=== PATIENT | female | born 1990 ===

== ENCOUNTER 2019-01-10 01:31 | Outpatient (CLI) | payer BC | END 2019-01-10 23:59 | disposition home or self-care (01) | LOC: DIABETIC 01:31 | PROVIDERS: ATTEND Specialist | DX: E10.65 Type 1 diabetes mellitus with hyperglycemia (principal); Z79.4 Long term (current) use of insulin | CPT/HCPCS: G0108 ==

== ENCOUNTER 2019-02-07 01:30 | Outpatient (CLI) | payer BC | END 2019-02-07 23:59 | disposition home or self-care (01) | LOC: DIABETIC 01:30 | PROVIDERS: ATTEND Specialist | DX: Z71.3 Dietary counseling and surveillance (principal); E10.8 Type 1 diabetes mellitus with unspecified complications; O24.912 Unspecified diabetes mellitus in pregnancy, second trimester; O99.212 Obesity complicating pregnancy, second trimester; E66.01 Morbid (severe) obesity due to excess calories | CPT/HCPCS: G0108 ==